=== PATIENT | male | born 1975 | race Caucasian/White ===

== ENCOUNTER 2023-05-26 10:49 | Emergency (ER) | payer MEDICARE, BC, SELFPAY ==
--- NOTE | ~2023-05-26 | US_ITS ---
EXAMINATION: US SCROTUM CLINICAL INFORMATION: Testicular pain. COMPARISON: None available. TECHNIQUE: A sonogram of the scrotum was performed assessing villalba-scale appearance and color Doppler flow. Spectral Doppler analysis of the arterial and venous flow were performed in the testes bilaterally. FINDINGS: RIGHT: Right testicle measures 3.6 x 2.1 x 3.3 cm, volume 13.0 mL. No focal testicular parenchymal lesions are visualized. Spectral Doppler analysis of the arterial and venous flow is normal in the right testis. Right epididymal head is enlarged and hypervascular. No hydrocele or varicocele. LEFT: Left testicle measures 3.9 x 2.1 x 3.3 cm, volume 14.1 mL. No focal testicular parenchymal lesions are visualized. Spectral Doppler analysis of the arterial and venous flow is normal in the left testis. Left epididymal tail is enlarged and hypervascular. Small hydrocele. No varicocele. US/US scrotum IMPRESSION: Bilateral epididymitis, on the right involving the head, on the left involving the tail. Small left hydrocele. Unremarkable testes.
--- NOTE | ~2023-05-26 | US_ITS ---
EXAMINATION: US SCROTUM CLINICAL INFORMATION: Testicular pain. COMPARISON: None available. TECHNIQUE: A sonogram of the scrotum was performed assessing villalba-scale appearance and color Doppler flow. Spectral Doppler analysis of the arterial and venous flow were performed in the testes bilaterally. FINDINGS: RIGHT: Right testicle measures 3.6 x 2.1 x 3.3 cm, volume 13.0 mL. No focal testicular parenchymal lesions are visualized. Spectral Doppler analysis of the arterial and venous flow is normal in the right testis. Right epididymal head is enlarged and hypervascular. No hydrocele or varicocele. LEFT: Left testicle measures 3.9 x 2.1 x 3.3 cm, volume 14.1 mL. No focal testicular parenchymal lesions are visualized. Spectral Doppler analysis of the arterial and venous flow is normal in the left testis. Left epididymal tail is enlarged and hypervascular. Small hydrocele. No varicocele. US/US scrotum doppler IMPRESSION: Bilateral epididymitis, on the right involving the head, on the left involving the tail. Small left hydrocele. Unremarkable testes.
[2023-05-26 10:56] VITALS: BP 179/92; PULSE 65; RESP 19; TEMP 36.6; O2SAT 99; BMI 34.2
--- NOTE | 2023-05-26 11:00 | ED.MALEGU ---
HPI - Male Genitourinary General Chief complaint: Urogenital-Male Stated complaint: testicular discomfort Time Seen by Provider: 05/26/23 13:11 Source: patient Mode of arrival: ambulatory Limitations: no limitations History of Present Illness HPI Narrative: Patient comes to the emergency room complaining of bilateral testicular pain that started approximately 2 days ago. Patient states that he did not sustain any injuries. Patient denies dysuria or hematuria. Patient denies abdominal pain, no fever or chills, no flank pain. Patient denies any penile discharge, no concerns with sexually transmitted disease Related Data Previous Rx's Medication Instructions Recorded ketorolac 10 mg tablet 10 mg PO BID PRN pain #7 tabs 05/26/23 levofloxacin 500 mg tablet 500 mg PO DAILY #9 tabs 05/26/23 Allergies Allergy/AdvReac Type Severity Reaction Status Date / Time Penicillins [PCN] Allergy Hives Verified 05/26/23 10:56 Review of Systems Review of Systems: Constitutional : No Weight loss, No Fever, No Chills, No Night Sweats, No Fatigue, No Malaise ENT/Mouth : No Hearing loss, No Ear Pain, No Nasal Congestion, No Sinus Pain, No Hoarseness, No sore throat, No Rhinorrhea, No Swallowing Difficulty Eyes: No Eye Pain, No Swelling, No Redness, No Foreign Body, No Discharge, No Vision Changes Cardiovascular : No Chest Pain, No SOB, No Dyspnea on Exertion, No Orthopnea, No Edema, No Palpitations Respiratory : No Cough, No Sputum, No Wheezing, No Smoke Exposure, No Dyspnea Gastrointestinal : No Nausea, No Vomiting, No Diarrhea, No Constipation, No abdominal Pain, No Hematochezia, No Melena Genitourinary : Complaining of bilateral testicular pain, No Dysuria, No Urinary Frequency, No Hematuria, No Urinary Incontinence, No Urgency, No Flank Pain, No Urinary Flow Changes, No Hesitancy Musculoskeletal : No joint pain, No Myalgias, No Joint Swelling Skin : No Skin Lesions, No rash Neuro : No Weakness, No Numbness, No Paresthesias, No Loss of Consciousness, No Dizziness, No Headache Psych : No Anxiety/Panic, No Depression, No SI/HI/AH/VH, No Social Issues, Heme/Lymph: No Bruising, No Bleeding,No Lymphadenopathy Endocrine : No Polyuria, No Polydipsia, No Temperature Intolerance [facility] Social History Social History Alcohol intake: never Smoked in Last 30 Days: No Use of substances other than those prescribed or required for medical reasons: No Advance Directives: No Advance Directives Information Provided: No Physical Exam Vital Signs: Vital Signs: Last Vital Signs Temp 99.0 F 05/26/23 12:40 Pulse 70 05/26/23 12:40 Resp 16 05/26/23 12:40 BP 154/87 H 05/26/23 12:40 Pulse Ox 99 05/26/23 12:40 O2 Del Method Room Air 05/26/23 12:40 BMI result Body Mass Index 34.2 Const: Other: Appearance: Alert. Oriented X3. No acute distress. Eyes: Pupils equal, round and reactive to light. ENT: Pharynx normal. Neck: Normal inspection. Neck supple. No lymph nodes noted. No crepitus CVS: Normal heart rate and rhythm. Pulses normal. Normal S1 and S2 Respiratory: No respiratory distress. Breath sounds normal. No Wheezing. No rales Abdomen: Soft and nontender. No rigidity. No distention. : Normal male genitalia, mild pain to palpation in the epididymis bilaterally, no inguinal hernias, no penile discharge Skin: Skin warm and dry. Normal skin color. Normal skin turgor. Extremities: No lower extremity edema. No Lacerations. No Rash Neuro: Oriented X 3. No motor deficit. No sensory deficit. Moving all extremities. No slurred speech. CN 2 through 12 grossly intact Psych: calm, cooperative, normal affect Course Course Course Narrative: RME- 48-year-old male presents for evaluation of testicular pain for the last 2 days. Denies associated symptoms including burning with urination, urinary frequency, abdominal pain, fevers or chills. Patient denies any concern for sexually transmitted infections. Plan for UA and ultrasound Medical Decision Making Medical Decision Making [facility] Narrative: -my interpretation of ultrasound: Flow to the testes seems normal, bilaterally -urinalysis negative for UTI -patient admits that he does not have STDs and has no concerns for STDs -patient was given a dose of IM Toradol and p.o. levofloxacin. Differential Diagnosis Differential Diagnoses: The differential diagnosis associated with the presentation includes (Testicular torsion, epididymitis, testicular rupture, testicular masses) Lab Data [facility] Lab Attestation statement: I reviewed the patient's lab results. Labs: Lab Results 05/26/23 Range/Units 11:10 Urine Color Yellow Urine Appearance Clear Urine pH 5.5 (5.0-9.0) Ur Specific [place] 1.025 (1.005-1.025) Urine Protein Negative (Neg-Trace) mg/dL Urine Glucose (UA) Negative (Negative) mg/dL Urine Ketones Negative (Negative) mg/dL Urine Blood Negative (Negative) Urine Nitrite Negative (Negative) Ur Leukocyte Esterase Negative (Negative) Urine RBC 0-2 (0-2) /HPF Urine WBC 0-5 (0-5) /HPF Ur Squamous Epith Cells 0-2 (0-2) /HPF Urine Bacteria None Seen (None Seen) Hyaline Casts 0-2 (0-2) /LPF Radiology Impression Discussion of test interpretation with radiology: I have reviewed the radiologist's reading. Radiologist Impression: FINDINGS: RIGHT: Right testicle measures 3.6 x 2.1 x 3.3 cm, volume 13.0 mL. No focal testicular parenchymal lesions are visualized. Spectral Doppler analysis of the arterial and venous flow is normal in the right testis. Right epididymal head is enlarged and hypervascular. No hydrocele or varicocele. LEFT: Left testicle measures 3.9 x 2.1 x 3.3 cm, volume 14.1 mL. No focal testicular parenchymal lesions are visualized. Spectral Doppler analysis of the arterial and venous flow is normal in the left testis. Left epididymal tail is enlarged and hypervascular. Small hydrocele. No varicocele. US/US scrotum IMPRESSION: Bilateral epididymitis, on the right involving the head, on the left involving the tail. Small left hydrocele. Unremarkable testes. Independent Historian Clinical information obtained from an independent historian. History obtained from or confirmed by: Other (Significant other) Tests considered The following testing was considered but not selected: Hematology and chemistry were considered. However, patient has no UTI, no fever chills, normal heart rate and blood pressure. Patient will be covered with antibiotics. Prescription Management I considered prescription management with: Pain Medication and Antibiotic Critical Care Time Critical Care Time Critical Care Time: Yes Total Critical Care Time: 30 Attestation: I have personally provided critical care time. Time includes review of lab data, radiology results, discussion with consultants, and monitoring for potential decompensation. Intervention performed as documented. Discharge Plan Discharge Clinical Impression: Acute epididymitis Patient Disposition: Home, Self-Care Instructions: Epididymitis (ED) Additional Instructions: Please follow-up with your primary care physician tomorrow. If you have any worsening or new symptoms, please return to the emergency room or call 911 Prescriptions: New levofloxacin 500 mg tablet 500 mg PO DAILY Qty: 9 0RF ketorolac 10 mg tablet 10 mg PO BID PRN (Reason: pain) Qty: 7 0RF Rx Instructions: Do not use this medication was ibuprofen/naproxen/NSAIDs, only Tylenol if needed
[2023-05-26 11:18] LABS: Appearance Urine Clear; Color Urine Yellow; Glucose Urine UA Negative (Negative); Leukocyte Esterase Urine Negative (Negative); Nitrite Urine Negative (Negative); PH 5.5 (5.0-9.0); Specific Gravity - Urine 1.025 (1.005-1.025); Urine Blood Negative (Negative); Urine Ketones Negative (Negative); Urine Protein Negative (Neg-Trace)
[2023-05-26 11:23] LABS: Bacteria Urine None Seen (None Seen); Hyaline Casts Urine 0-2 /LPF (0-2); RBC Urine 0-2 /HPF (0-2); Squamous Epithelial Cell Urine 0-2 /HPF (0-2); WBC Urine 0-5 /HPF (0-5)
[2023-05-26 12:40] VITALS: BP 154/87; PULSE 70; RESP 16; TEMP 37.2; O2SAT 99
[2023-05-26] MEDS: Ketorolac Tromethamine 60 MG/2 ML VIAL IM (13:48)
[2023-05-26] MEDS: levoFLOXacin 500 MG TABLET PO (13:48)
[2023-05-26 15:41] LABS: CT PCR NOT DETECTED (Not Detect.); NG PCR NOT DETECTED (Not Detect.)
== END 2023-05-26 14:25 | disposition home or self-care (01) ==
PROVIDERS: Physician Assistant; Emergency Provider Emergency Medicine
DX: N45.1 Epididymitis (principal); N50.811 Right testicular pain; R10.2 Pelvic and perineal pain; Z79.899 Other long term (current) drug therapy
CPT/HCPCS: 0353U; 76870; 81001; 93975; 96372; 99284; J1885